=== PATIENT | female | born 1995 | race Caucasian/White ===

== ENCOUNTER 2022-07-19 17:43 | Emergency (ER) | payer BC ==
[~2022-07-19 17:43] MED LIST: IBUPROFEN600 MG PO
[2022-07-19 20:16] LABS: HEMOGLOBIN 12.6 gm/dl (12.3-15.3); RED BLOOD COUNT 4.12 M/UL (4.00-5.10); WHITE BLOOD COUNT 8.9 K/UL (4.5-11.0)
[2022-07-19 20:33] LABS: BUN/CREATININE RATIO 14 (0-10)
== END 2022-07-19 22:36 | disposition home or self-care (01) ==
LOC: ER1 17:43
PROVIDERS: Physician Assistant Medical
DX: R56.9 Unspecified convulsions (principal)
CPT/HCPCS: 70450; 80053; 80307; 81001; 84703; 85025; 99285